=== PATIENT | male | born 1990 | race Caucasian/White ===

== ENCOUNTER 2017-08-30 23:22 | Emergency (ER) | payer OTHER ==
[2017-08-31] MEDS: IBUPROFEN 600 MG TAB PO (00:24)
== END 2017-08-31 01:24 | disposition home or self-care (01) ==
LOC: FTE 08-31 01:24
DX: M53.3 Sacrococcygeal disorders, not elsewhere classified (principal); J45.909 Unspecified asthma, uncomplicated
CPT/HCPCS: 72220; 99283-25